=== PATIENT | male | born 1995 | race Caucasian/White ===

== ENCOUNTER 2019-11-16 21:43 | Emergency (ER) | payer MEDICAID ==
[~2019-11-16] VITALS: Ht 177.8 cm; Wt 89.8 kg
[2019-11-16 21:47] VITALS: BP 127/69; Ht 177.8 cm; Wt 89.8 kg
== END 2019-11-16 23:36 | disposition home or self-care (01) ==
LOC: ED 21:43
DX: T15.01XA Foreign body in cornea, right eye, initial encounter (principal); W45.8XXA Other foreign body or object entering through skin, initial encounter; Y93.89 Activity, other specified; Y92.89 Other specified places as the place of occurrence of the external cause; Y99.8 Other external cause status